=== PATIENT | male | born 1960 | race Asian ===

== ENCOUNTER 2017-10-01 12:57 | Outpatient (CLI) | payer OTHER | END 2017-10-01 18:00 | disposition home or self-care (01) | LOC: RAD 12:57 | DX: M25.462 Effusion, left knee (principal) ==

== ENCOUNTER 2022-10-29 17:05 | Emergency (ER) | payer BC ==
[~2022-10-29] VITALS: Ht 185.4 cm; Wt 140.6 kg
[2022-10-29 17:10] VITALS: BP 172/94; TEMP 98
== END 2022-10-29 18:41 | disposition home or self-care (01) ==
LOC: ED 17:05
DX: M17.11 Unilateral primary osteoarthritis, right knee (principal); M25.461 Effusion, right knee
CPT/HCPCS: 99283